=== PATIENT | female | born 1980 | race Caucasian/White ===

== ENCOUNTER → 2016-12-09 16:55 | Outpatient (CLI) | payer BC ==
[2013-12-17 06:11] VITALS: BMI 41.4
[~2016-12-09 16:55] MED LIST: PERCOCET 10/3251 TA1 PO; ZESTRIL10 MG PO
== END | disposition home or self-care (01) ==
LOC: D.MAMMO 09:30
DX: N63 Unspecified lump in breast (principal)

== ENCOUNTER 2017-07-05 07:56 | Emergency (ER) | payer BC ==
[2013-12-17 06:11] VITALS: BMI 41.4
== END 2017-07-05 08:34 | disposition home or self-care (01) ==
LOC: D.ER 07:56
DX: M76.891 Other specified enthesopathies of right lower limb, excluding foot (principal)